=== PATIENT | female | born 1955 | race Hispanic/Latino ===

== ENCOUNTER → 2021-11-07 | Outpatient (CLI) | payer BC, OTHER ==
[2021-11-07 12:04] LABS: INR 0.96 (0.85-1.15); PROTHROMBIN TIME 10.5 SEC (9.6-11.6)
[2021-11-07 12:05] LABS: PARTIAL THROMBOPLASTIN TIME 26.2 SEC (26.3-35.5)
== END | disposition home or self-care (01) ==
LOC: LAB 11:23
PROVIDERS: ATTEND Student in an Organized Health Care Education/Training Program
DX: D48.62 Neoplasm of uncertain behavior of left breast (principal)
CPT/HCPCS: 36415; 85610; 85730

== ENCOUNTER → 2021-11-15 | Outpatient (CLI) | payer BC, OTHER ==
[2021-11-15 10:43] LABS: INR 0.93 (0.85-1.15)
[2021-11-15 10:44] LABS: PARTIAL THROMBOPLASTIN TIME 25.6 SEC (26.3-35.5)
[2021-11-15] MEDS: LIDOCAINE HCL 1% 20 ML VIAL ONE (11:19)
[2021-11-15] MEDS: SODIUM BICARB 50MEQ 50ML VIAL 50 ML ONE (11:20)
== END | disposition home or self-care (01) ==
LOC: RAH 08:35
PROVIDERS: ATTEND Student in an Organized Health Care Education/Training Program
DX: N63.21 Unspecified lump in the left breast, upper outer quadrant (principal); R59.0 Localized enlarged lymph nodes; Z79.01 Long term (current) use of anticoagulants
CPT/HCPCS: 19083; 85610; 85730; 36415; 38505; J3490; A4215 ×5; 76942

== ENCOUNTER 2021-12-03 06:30 | Observation (INO) | payer BC, OTHER ==
[2021-11-29 15:19] LABS: BASOPHILS % (AUTO) 0.8 % (0.0-5.0); EOSINOPHILS % (AUTO) 2.4 % (0.0-8.0); HEMATOCRIT 43.7 % (36-48); LYMPHOCYTES % (AUTO) 29.9 % (21.0-51.0); MEAN CORPUSCULAR HEMOGLOBIN 26.7 pg (27.0-33.0); MEAN CORPUSCULAR HGB CONC 32.5 g/dL (32.0-36.0); MEAN CORPUSCULAR VOLUME 82.3 fL (79-99); MONOCYTES % (AUTO) 10.1 % (3.0-13.0); NEUTROPHILS % (AUTO) 56.6 % (40.0-77.0); PLATELET COUNT (AUTO) 224 K/uL (130-400); RED BLOOD CELL COUNT(AUTO) 5.31 MIL/uL (4.00-5.50); WHITE BLOOD COUNT (AUTO) 9.2 K/uL (4.8-10.8)
[2021-11-29 15:20] LABS: APPEARANCE,URINE CLEAR (CLEAR); BILIRUBIN,URINE NEGATIVE (NEGATIVE); COLOR,URINE YELLOW (YELLOW); GLUCOSE, URINE (UA) NEGATIVE (NEGATIVE); KETONES,URINE NEGATIVE (NEGATIVE); LEUKOCYTE ESTERASE ,URINE TRACE (NEGATIVE); NITRATE,URINE NEGATIVE (NEGATIVE); OCCULT BLOOD,URINE TRACE-INTACT (NEGATIVE); PROTEIN,URINE 30 mg/dL (NEGATIVE)
[2021-11-29 15:26] LABS: CREATININE 1.1 mg/dL (0.5-1.5); POTASSIUM 3.8 mmol/L (3.5-5.1)
[2021-11-29 15:29] LABS: INR 0.97 (0.85-1.15); PROTHROMBIN TIME 10.6 SEC (9.6-11.6)
[2021-11-29 15:31] LABS: PARTIAL THROMBOPLASTIN TIME 26.5 SEC (26.3-35.5)
[2021-11-29 15:47] LABS: BACTERIA,URINE Few /HPF (None Seen); MUCUS,URINE None Seen LPF (None Seen); SQUAMOUS EPITHELIAL CELL,UR Few /HPF (0-2); WBC,URINE 0-1 /HPF (0-1)
[2021-11-30 09:11] VITALS: BP 144/73
[~2021-12-03] VITALS: Ht 157.5 cm; Wt 88.9 kg
[2021-12-03] VITALS (22 sets, daily range): BP systolic 87–164; BP diastolic 49–83
[~2021-12-03 06:30] MED LIST: 0.9%NACL 1000ML 1,000 ML IV SCH; AEC81 PO; ALPR0.5T8 PO; CEFAZOLIN SODIUM 1 GM VIAL IVP SCH; DILT240C94 PO; LOSA50TA64 PO; METF-444 PO; PANT40TA54 PO; ROSU40TA21 PO
[2021-12-03] MEDS ORDERED: PROPOFOL 10 MG/ML 20ML VIAL IV ONE (07:18)
[2021-12-03] MEDS ORDERED: MIDAZOLAM HCL 1 MG/ML 2ML VIAL ONE (07:18)
[2021-12-03] MEDS ORDERED: FENTANYL CITRATE PF 50 MCG/1 ML 5ML AMP IV ONE (07:18)
[2021-12-03] MEDS ORDERED: LIDOCAINE HCL 1% 20 ML VIAL ONE (07:27)
[2021-12-03] MEDS ORDERED: ROPIVACAINE 0.5% 5MG/ML 30ML IJ ONE (07:27)
[2021-12-03] MEDS ORDERED: BUPIVACAINE/PF 0.25% 30ML VIAL IJ ONE (07:28)
[2021-12-03] MEDS ORDERED: ROCURONIUM 10MG/1ML SYR 10 MG/ML ML ONE (07:30)
[2021-12-03] MEDS ORDERED: ONDANSETRON 4MG INJ ONE ×2 (07:31→10:49)
[2021-12-03] MEDS ORDERED: DEXAMETHASONE SOD PHOSPHATE 10MG/ML 1ML VIAL ONE (07:34)
[2021-12-03] MEDS ORDERED: CEFAZOLIN SODIUM 2 GM VIAL IV ONE (07:47)
[2021-12-03] MEDS ORDERED: EPHEDRINE SULFATE 50 MG/ML AMPULE ONE (08:28)
[2021-12-03] MEDS ORDERED: GLYCOPYRROLATE 1 MG/5 ML SYRINGE ONE (10:50)
[2021-12-03] MEDS ORDERED: NEOSTIGMINE 5MG/5ML SYR IV ONE (10:50)
[2021-12-03] MEDS ORDERED: GABAPENTIN 100 MG CAPSULE PO PRN (12:30)
[2021-12-03] MEDS: TRAMADOL HCL 50 MG TABLET PO PRN ×2 (12:56→23:18)
[2021-12-03] MEDS ORDERED: Rosuvastatin Calcium 40 MG PO SCH (21:00)
[2021-12-03] MEDS ORDERED: ALPRAZOLAM 0.25 MG TABLET PO SCH (21:00)
[2021-12-03] MEDS ORDERED: METFORMIN HCL 500 MG TABLET PO SCH (21:30)
[2021-12-04 02:55] VITALS: BP 126/63
[2021-12-04] MEDS: GABAPENTIN 100 MG CAPSULE PO SCH ×2 (03:00→11:48)
[2021-12-04] MEDS ORDERED: TRAMADOL HCL 50 MG TABLET PO SCH (06:00)
[2021-12-04 06:05] LABS: HEMATOCRIT 39.4 % (36-48); MEAN CORPUSCULAR HEMOGLOBIN 26.7 pg (27.0-33.0); MEAN CORPUSCULAR VOLUME 83.5 fL (79-99); RED BLOOD CELL COUNT(AUTO) 4.72 MIL/uL (4.00-5.50); RED CELL DISTRIBUTION WIDTH 14.1 % (11.0-15.5); WHITE BLOOD COUNT (AUTO) 10.9 K/uL (4.8-10.8)
[2021-12-04 06:16] LABS: CREATININE 0.8 mg/dL (0.5-1.5); POTASSIUM 4.3 mmol/L (3.5-5.1)
[2021-12-04 07:20] VITALS: BP 127/69
[2021-12-04] MEDS ORDERED: LOSARTAN 50 MG TABLET PO SCH (09:00)
[2021-12-04] MEDS ORDERED: DILTIAZEM 120MG SR CAP PO SCH (09:00)
[2021-12-04] MEDS ORDERED: PANTOPRAZOLE 40 MG TAB DR PO SCH (09:00)
[2021-12-04] MEDS ORDERED: ASPIRIN 81 MG EC TAB PO SCH (09:00)
[2021-12-04] MEDS ORDERED: METFORMIN HCL 500 MG TABLET PO SCH (09:00)
[2021-12-04 13:03] VITALS: BP 118/66
[2021-12-04 15:59] VITALS: BP 125/60
== END 2021-12-04 16:55 | disposition home or self-care (01) ==
LOC: DAH 06:30 → DAHIP 06:31 → INTOOBSV 06:31 → OBSVTOIN 06:31 → DAH 06:31 → WSH 11:55
PROVIDERS: ADMIT Student in an Organized Health Care Education/Training Program; ATTEND Student in an Organized Health Care Education/Training Program
DX: C50.912 Malignant neoplasm of unspecified site of left female breast (principal); Z20.822 Contact with and (suspected) exposure to COVID-19; D48.62 Neoplasm of uncertain behavior of left breast; I10 Essential (primary) hypertension; E11.9 Type 2 diabetes mellitus without complications; E78.00 Pure hypercholesterolemia, unspecified; F32.A Depression, unspecified; E78.5 Hyperlipidemia, unspecified; Z79.899 Other long term (current) drug therapy
CPT/HCPCS: 19307; 38525; 80048 ×2; 85025; 85610; 85730; 87426; 81001; 36415 ×2; 71045; 93005; 82948 ×6; 85027; A6260; G0378 ×28; A4663; J7120; J0690 ×2; J3010; J3490 ×3; J1100; J2710; J7030 ×2; J2250; J2704; J2405 ×2; J2795; A4215; A4223; A4222; A4221; A4600